=== PATIENT | female | born 1960 | race Caucasian/White ===

== ENCOUNTER 2019-04-14 08:38 | Day surgery (SDC) | payer OTHER ==
[~2019-04-14 08:38] MED LIST: FENTANYL 100MCG/2ML SOL ONE; KETAMINE HYDROCHLORIDE 50 MG/ML SOL ONE; MIDAZOLAM 2 MG/2 ML SOL ONE; ONDANSETRON HCL 4 MG/2 ML SOL ONE; PROPOFOL 500 MG/50 ML EMU IV ONE
[2019-04-14 09:03] VITALS: BP 124/84; PULSE 69; RESP 16; TEMP 96.7; O2SAT 90
== END 2019-04-14 09:55 | disposition home or self-care (01) | DRG 301 ==
LOC: SURG 08:38
PROVIDERS: ATTEND Surgery
DX: I83.813 Varicose veins of bilateral lower extremities with pain (principal); Z53.8 Procedure and treatment not carried out for other reasons; J98.9 Respiratory disorder, unspecified
CPT/HCPCS: J2250; J2405; J3010; J2704; J3490